=== PATIENT | female | born 1970 | race Caucasian/White ===

== ENCOUNTER → 2017-01-06 | Outpatient (CLI) | payer BC ==
[~2017-01-06] MED LIST: ALBU8.5H5; CYCL5TAB; HYDR-3240 PO; IBUP800T PO; NAPR500T3; OMEP20CA9 PO; PENI500T PO; flexeril
== END | disposition home or self-care (01) ==
LOC: CFH 08:33
PROVIDERS: ATTEND Nurse Practitioner
DX: Z12.31 Encounter for screening mammogram for malignant neoplasm of breast (principal)
CPT/HCPCS: G0202

== ENCOUNTER 2017-01-28 16:37 | Emergency (ER) | payer BC ==
[~2017-01-28] VITALS: Ht 160 cm; Wt 125.0 kg
[2017-01-28 16:42] VITALS: BP 161/89
[2017-01-28] MEDS ORDERED: KETOROLAC 30 MG/1 ML IM ONE (18:00)
== END 2017-01-28 18:20 | disposition home or self-care (01) ==
LOC: ED 18:14
DX: S76.011A Strain of muscle, fascia and tendon of right hip, initial encounter (principal); M54.16 Radiculopathy, lumbar region; M54.41 Lumbago with sciatica, right side; I10 Essential (primary) hypertension; E11.9 Type 2 diabetes mellitus without complications; Z90.49 Acquired absence of other specified parts of digestive tract; Z90.710 Acquired absence of both cervix and uterus; X58.XXXA Exposure to other specified factors, initial encounter; Y93.89 Activity, other specified; Y92.89 Other specified places as the place of occurrence of the external cause; Y99.9 Unspecified external cause status
CPT/HCPCS: 72110; 99284

== ENCOUNTER 2017-02-25 21:48 | Emergency (ER) | payer BC ==
[~2017-02-25] VITALS: Ht 160 cm; Wt 126.6 kg
[2017-02-25 21:54] VITALS: BP 157/93
== END 2017-02-26 00:59 | disposition home or self-care (01) ==
LOC: ED 22:50
DX: N30.01 Acute cystitis with hematuria (principal); Z90.49 Acquired absence of other specified parts of digestive tract; Z90.89 Acquired absence of other organs; I10 Essential (primary) hypertension; E11.9 Type 2 diabetes mellitus without complications
CPT/HCPCS: 81001; 87086; 99284

== ENCOUNTER 2018-07-22 08:40 | Emergency (ER) | payer BC ==
[~2018-07-22] VITALS: Ht 162.6 cm; Wt 88.9 kg
[~2018-07-22 08:40] MED LIST changes: +IBUP-1223 PO; -IBUP800T PO; +NAPR-685; -NAPR500T3
[2018-07-22 09:28] LABS: CULTURE INDICATED? YES; MICROSCOPIC INDICATED
[2018-07-22 10:46] VITALS: BP 137/68
== END 2018-07-22 10:48 | disposition home or self-care (01) ==
LOC: ED 10:30
DX: N30.00 Acute cystitis without hematuria (principal); F17.200 Nicotine dependence, unspecified, uncomplicated; Z88.2 Allergy status to sulfonamides; Z88.1 Allergy status to other antibiotic agents
CPT/HCPCS: 81001; 87086; 99284

== ENCOUNTER 2018-08-29 08:04 | Emergency (ER) | payer BC ==
[~2018-08-29] VITALS: Ht 154.9 cm; Wt 88.1 kg
[2018-08-29 08:36] LABS: BASOPHILS # (AUTO) 0.05 x10^3/uL (0-0.1); BASOPHILS % (AUTO) 1 % (0-1); EOSINOPHILS # (AUTO) 0.12 x10^3/uL (0-0.4); EOSINOPHILS % (AUTO) 2 % (1-7); LYMPHOCYTES # (AUTO) 2.23 x10^3/uL (1-3.4); LYMPHOCYTES % (AUTO) 31 % (22-44); MD NO; MEAN CORPUSCULAR HGB CONC 33.6 g/dL (32.4-35.8); MEAN CORPUSCULAR VOLUME 89.3 fL (80-100); MEAN PLATELET VOLUME 8.9 fL (7.4-10.4); MONOCYTES % (AUTO) 6 % (2-9); NEUTROPHILS # (AUTO) 4.35 x10^3/uL (1.8-6.8); NEUTROPHILS % (AUTO) 61 % (42-75); PLATELET COUNT 242 x10^3/uL (130-400); RED BLOOD COUNT 4.93 x10^6/uL (3.82-5.3); RED CELL DISTRIBUTION WIDTH 12.7 % (9.6-15.2)
[2018-08-29 08:37] LABS: MICROSCOPIC AUTO
[2018-08-29 08:48] LABS: ALANINE AMINOTRANSFERASE 19 U/L (12-78); ALBUMIN 3.7 g/dL (3.4-5.0); ANION GAP 5 mmol/L (5-15); CHLORIDE 107 mmol/L (98-107); CREATININE 0.69 mg/dL (0.55-1.02)
[2018-08-29 08:51] LABS: ALKALINE PHOSPHATASE 117 U/L (45-117); BILIRUBIN,TOTAL 0.3 mg/dL (0.2-1.0); TOTAL PROTEIN 7.7 g/dL (6.4-8.2)
[2018-08-29 08:57] LABS: CULTURE INDICATED? YES
[2018-08-29 11:21] VITALS: BP 135/72
[2018-08-29 12:48] LABS: MICROSCOPIC AUTO
[2018-08-29 12:57] LABS: CULTURE INDICATED? NO
== END 2018-08-29 13:21 | disposition home or self-care (01) ==
LOC: ED 09:33
DX: N13.2 Hydronephrosis with renal and ureteral calculous obstruction (principal); I10 Essential (primary) hypertension; E11.9 Type 2 diabetes mellitus without complications; Z90.49 Acquired absence of other specified parts of digestive tract; Z90.710 Acquired absence of both cervix and uterus; Z88.1 Allergy status to other antibiotic agents; Z88.2 Allergy status to sulfonamides
CPT/HCPCS: 36415; 74176; 76770; 80053; 81001; 85025; 87086; 99284

== ENCOUNTER 2019-02-13 07:26 | Emergency (ER) | payer BC ==
[~2019-02-13] VITALS: Ht 162.6 cm; Wt 86.3 kg
[~2019-02-13 07:26] MED LIST changes: +OMEP-110 PO
[2019-02-13 07:39] VITALS: BP 148/84
--- NOTE | 2019-02-13 07:58 | NUR ---
PATIENT IS NOT IN WAITING ROOM/LOBBY - US DELAY
[2019-02-13 08:01] LABS: MICROSCOPIC AUTO
[2019-02-13 08:10] LABS: CULTURE INDICATED? YES
--- NOTE | 2019-02-13 08:15 | NUR ---
PT AMBULATORY TO ROOM. CARE ASSUMED.
--- NOTE | 2019-02-13 09:00 | NUR ---
PT IN ULTRASOUND AT THIS TIME. CARE TRANSFERRED TO Reji SHEPARD.
--- NOTE | 2019-02-13 09:19 | NUR ---
ASSUMED CARE OF PT ON RETURN FROM RADIOLOGY. MD AT BEDSIDE EXAMINING PT
--- NOTE | 2019-02-13 09:23 | NUR ---
PT STATES BILATERAL FLANK PT INTERMITTENT FOR A WEEK. PT HAS BEEN TAKING FLOMAX FOR 4 OR 5 DAYS AND FEELING NO IMPROVEMENT
[2019-02-13 10:04] LABS: BASOPHILS # (AUTO) 0.03 x10^3/uL (0-0.1); BASOPHILS % (AUTO) 0 % (0-1); EOSINOPHILS # (AUTO) 0.11 x10^3/uL (0-0.4); EOSINOPHILS % (AUTO) 2 % (1-7); LYMPHOCYTES # (AUTO) 2.04 x10^3/uL (1-3.4); LYMPHOCYTES % (AUTO) 34 % (22-44); MD NO; MEAN CORPUSCULAR HEMOGLOBIN 30.5 pg (27.0-34.8); MEAN CORPUSCULAR HGB CONC 34.2 g/dL (32.4-35.8); MEAN CORPUSCULAR VOLUME 89.2 fL (80-100); MEAN PLATELET VOLUME 9.3 fL (7.4-10.4); MONOCYTES # (AUTO) 0.37 x10^3/uL (0.2-0.8); MONOCYTES % (AUTO) 6 % (2-9); NEUTROPHILS # (AUTO) 3.48 x10^3/uL (1.8-6.8); NEUTROPHILS % (AUTO) 58 % (42-75); PLATELET COUNT 208 x10^3/uL (130-400); RED BLOOD COUNT 4.71 x10^6/uL (3.82-5.3); RED CELL DISTRIBUTION WIDTH 13.4 % (9.6-15.2)
[2019-02-13 10:18] LABS: ALBUMIN 3.5 g/dL (3.4-5.0); ANION GAP 4 mmol/L (5-15); CALCIUM 9.2 mg/dL (8.5-10.1); CHLORIDE 109 mmol/L (98-107)
[2019-02-13 10:21] LABS: ALANINE AMINOTRANSFERASE 19 U/L (12-78); ALKALINE PHOSPHATASE 100 U/L (45-117); BILIRUBIN,TOTAL 0.3 mg/dL (0.2-1.0); TOTAL PROTEIN 6.9 g/dL (6.4-8.2)
== END 2019-02-13 10:05 | disposition home or self-care (01) ==
LOC: ED 09:54
DX: N30.01 Acute cystitis with hematuria (principal); I10 Essential (primary) hypertension; M19.90 Unspecified osteoarthritis, unspecified site; E11.9 Type 2 diabetes mellitus without complications; M54.9 Dorsalgia, unspecified; G89.29 Other chronic pain; Z90.49 Acquired absence of other specified parts of digestive tract; Z90.710 Acquired absence of both cervix and uterus
CPT/HCPCS: 36415; 74018; 76770; 80053; 81001; 85025; 87086; 99284

== ENCOUNTER 2019-03-15 08:13 | Emergency (ER) | payer BC ==
[~2019-03-15] VITALS: Ht 162.6 cm; Wt 86.2 kg
--- NOTE | 2019-03-15 08:32 | NUR ---
NUMERICAL CONTROL MACHINE OPERATOR: PT TO ROOM FROM [facility], AMBULATORY STEADY GAIT.
--- NOTE | 2019-03-15 09:25 | NUR ---
CONTACT WITH PT, 49 YR OLD FEMALE HERE WITH C/O "I HAVE BEEN HAVING PAINS FROM BOTH SIDES, KIDNEY PAINS AND PAINS INE BLADDER AREA. IT FEELS LIKE AN INFECTION NOT KIDNEY STONES THIS TIME" PT ABLE TO AMB TO BR AND PROVIDE URINE SPECIMAN. CLEAR DK YELLOW URINE.
--- NOTE | 2019-03-15 09:44 | NUR ---
TASK RN: EMILY COLLECTED AND SENT TO LAB.
[2019-03-15] MEDS ORDERED: TAMS-11 PO (09:45)
[2019-03-15 09:56] LABS: MICROSCOPIC AUTO
[2019-03-15 10:03] LABS: CULTURE INDICATED? YES
--- NOTE | 2019-03-15 10:54 | NUR ---
PT SITTING UP ON GURNEY. NO ACUTE DISTRESS NOTED. NO NEEDS EXPRESSED AT THIS TIME. AWAITING FURTHER DISPOSITION.
[2019-03-15 11:25] VITALS: BP 115/79
== END 2019-03-15 11:25 | disposition home or self-care (01) ==
LOC: ED 09:52
DX: R10.30 Lower abdominal pain, unspecified (principal); M19.90 Unspecified osteoarthritis, unspecified site; I10 Essential (primary) hypertension; E11.9 Type 2 diabetes mellitus without complications; M54.9 Dorsalgia, unspecified; G89.29 Other chronic pain
CPT/HCPCS: 81001; 87086; 99283

== ENCOUNTER 2019-09-29 07:42 | Emergency (ER) | payer SELFPAY ==
[~2019-09-29] VITALS: Ht 162.6 cm; Wt 87.0 kg
[~2019-09-29 07:42] MED LIST changes: +TAMS-11 PO
--- NOTE | 2019-09-29 08:25 | NUR ---
AVAYA ENGINEER: PT TO ROOM FROM LOBBY
--- NOTE | 2019-09-29 08:38 | NUR ---
PT WITH C/O LQ ABD PAIN BILAT, STATES HAS BEEN GOING ON FOR TWO DAYS. PT STATES IT FEELS LIKE A BLADDER INFECTION. PT ALSO STATES HAVING INTERMITTENT CP FOR 3 DAYS. PT DENIES TRAUMA, SOB, DENIES URINARY SYMPTOMS.
[2019-09-29] MEDS ORDERED: MAALOX/HYOSCYAMINE/LIDOCAINE 45 ML BTL ONE (09:21)
[2019-09-29] MEDS ORDERED: HYDROcodone/APAP 5/325 TABLET ONE (09:21)
--- NOTE | 2019-09-29 09:23 | NUR ---
ERMD IN TO EVAL PT, ORDERS RECIEVED. PT MEDICATED PER MAR
[2019-09-29] MEDS ORDERED: HYDROcodone/APAP 5/325 TABLET PO ONE (09:30)
[2019-09-29] MEDS ORDERED: MAALOX/HYOSCYAMINE/LIDOCAINE 45 ML BTL PO ONE (09:30)
[2019-09-29 09:38] LABS: MICROSCOPIC AUTO
[2019-09-29 09:46] LABS: CULTURE INDICATED? YES
[2019-09-29 10:01] LABS: BASOPHILS # (AUTO) 0.06 x10^3/uL (0-0.1); BASOPHILS % (AUTO) 1 % (0-1); EOSINOPHILS % (AUTO) 1 % (1-7); LYMPHOCYTES # (AUTO) 2.11 x10^3/uL (1-3.4); LYMPHOCYTES % (AUTO) 27 % (22-44); MD NO; MEAN CORPUSCULAR HEMOGLOBIN 30.3 pg (27.0-34.8); MEAN CORPUSCULAR HGB CONC 33.2 g/dL (32.4-35.8); MEAN CORPUSCULAR VOLUME 91.2 fL (80-100); MEAN PLATELET VOLUME 8.7 fL (7.4-10.4); MONOCYTES # (AUTO) 0.41 x10^3/uL (0.2-0.8); MONOCYTES % (AUTO) 5 % (2-9); NEUTROPHILS # (AUTO) 5.04 x10^3/uL (1.8-6.8); NEUTROPHILS % (AUTO) 65 % (42-75); PLATELET COUNT 225 x10^3/uL (130-400); RED BLOOD COUNT 4.94 x10^6/uL (3.82-5.3); RED CELL DISTRIBUTION WIDTH 13.2 % (9.6-15.2)
[2019-09-29 10:10] LABS: ALANINE AMINOTRANSFERASE 19 U/L (12-78); ALBUMIN 3.4 g/dL (3.4-5.0); ANION GAP 6 mmol/L (5-15); CALCIUM 8.7 mg/dL (8.5-10.1); CHLORIDE 109 mmol/L (98-107); CREATININE 0.65 mg/dL (0.55-1.02)
[2019-09-29 10:12] LABS: ALKALINE PHOSPHATASE 112 U/L (45-117); BILIRUBIN,TOTAL 0.4 mg/dL (0.2-1.0); TOTAL PROTEIN 7.1 g/dL (6.4-8.2)
[2019-09-29 10:20] VITALS: BP 112/76
--- NOTE | 2019-09-29 10:45 | NUR ---
PT RESTING ON GURNEY, PT STATES MUCH RELIEF FROM PAIN MED/GI COCKTAIL, PT PLACED FOR RECHECK, NAD NOTED
== END 2019-09-29 11:34 | disposition home or self-care (01) ==
LOC: ED 09:05
DX: K29.00 Acute gastritis without bleeding (principal); I10 Essential (primary) hypertension; E11.9 Type 2 diabetes mellitus without complications
CPT/HCPCS: 36415; 80053; 81001; 83690; 85025; 87086; 93005; 99284

== ENCOUNTER 2020-05-01 18:56 | Emergency (ER) | payer OTHER ==
[~2020-05-01] VITALS: Ht 162.6 cm; Wt 92.2 kg
--- NOTE | 2020-05-01 19:06 | NUR ---
CAR DUMPER OPERATOR: PT PROVIDED WITH URINE CUP AND INSTRUCTED ON HOW TO OBTAIN A URINE SAMPLE
[2020-05-01 19:31] LABS: MICROSCOPIC AUTO
[2020-05-01 19:40] LABS: BASOPHILS # (AUTO) 0.04 x10^3/uL (0-0.1); BASOPHILS % (AUTO) 1 % (0-1); EOSINOPHILS # (AUTO) 0.09 x10^3/uL (0-0.4); EOSINOPHILS % (AUTO) 1 % (1-7); LYMPHOCYTES # (AUTO) 2.41 x10^3/uL (1-3.4); LYMPHOCYTES % (AUTO) 30 % (22-44); MD NO; MEAN CORPUSCULAR HGB CONC 33.5 g/dL (32.4-35.8); MEAN PLATELET VOLUME 9.3 fL (7.4-10.4); MONOCYTES # (AUTO) 0.59 x10^3/uL (0.2-0.8); MONOCYTES % (AUTO) 7 % (2-9); NEUTROPHILS # (AUTO) 4.96 x10^3/uL (1.8-6.8); NEUTROPHILS % (AUTO) 61 % (42-75); PLATELET COUNT 245 x10^3/uL (130-400); RED BLOOD COUNT 4.91 x10^6/uL (3.82-5.3); RED CELL DISTRIBUTION WIDTH 12.9 % (9.6-15.2)
[2020-05-01 19:47] LABS: ALANINE AMINOTRANSFERASE 25 U/L (12-78); ALBUMIN 3.7 g/dL (3.4-5.0); ANION GAP 8 mmol/L (5-15); CALCIUM 9.1 mg/dL (8.5-10.1); CHLORIDE 108 mmol/L (98-107); CREATININE 0.75 mg/dL (0.55-1.02)
[2020-05-01 19:50] LABS: ALKALINE PHOSPHATASE 111 U/L (45-117); BILIRUBIN,TOTAL 0.4 mg/dL (0.2-1.0); TOTAL PROTEIN 7.7 g/dL (6.4-8.2)
--- NOTE | 2020-05-01 20:05 | NUR ---
HUNTING SALES LEADER: PT. TO ROOM FROM LOBBY AT THIS TIME.
--- NOTE | 2020-05-01 21:04 | NUR ---
LUNCH BREAK NOTE: PT TO RADIOLOGY FOR US/CT.
[2020-05-01 21:58] VITALS: BP 118/74
== END 2020-05-01 22:00 | disposition home or self-care (01) ==
LOC: ED 20:43
DX: N30.00 Acute cystitis without hematuria (principal); R10.9 Unspecified abdominal pain; I10 Essential (primary) hypertension; E11.9 Type 2 diabetes mellitus without complications; M19.90 Unspecified osteoarthritis, unspecified site; G89.29 Other chronic pain; Z90.89 Acquired absence of other organs; Z90.710 Acquired absence of both cervix and uterus; Z90.49 Acquired absence of other specified parts of digestive tract; Z90.722 Acquired absence of ovaries, bilateral
CPT/HCPCS: 36415; 74176; 80053; 81001; 85025; 87086; 99284

== ENCOUNTER 2020-05-28 18:36 | Emergency (ER) | payer OTHER ==
[~2020-05-28] VITALS: Ht 162.6 cm; Wt 93.7 kg
[2020-05-28 19:08] VITALS: BP 132/74
[2020-05-28] MEDS ORDERED: MORPHINE SULFATE 4 MG/ML, 1ML IVPush PRN (19:30)
[2020-05-28] MEDS ORDERED: SODIUM CHLORIDE FLUSH 10ML SYR IVF ONE (19:30)
[2020-05-28] MEDS ORDERED: ONDANSETRON 2MG/ML, 2ML IVPush ONE (19:30)
[2020-05-28 19:41] LABS: ALANINE AMINOTRANSFERASE 21 U/L (12-78); ALBUMIN 3.4 g/dL (3.4-5.0); ANION GAP 6 mmol/L (5-15); CALCIUM 9.4 mg/dL (8.5-10.1); CHLORIDE 110 mmol/L (98-107); CREATININE 0.74 mg/dL (0.55-1.02)
[2020-05-28 19:44] LABS: ALKALINE PHOSPHATASE 117 U/L (45-117); BILIRUBIN,TOTAL 0.4 mg/dL (0.2-1.0); TOTAL PROTEIN 7.3 g/dL (6.4-8.2)
[2020-05-28 19:46] LABS: BASOPHILS # (AUTO) 0.03 x10^3/uL (0-0.1); BASOPHILS % (AUTO) 0 % (0-1); EOSINOPHILS # (AUTO) 0.12 x10^3/uL (0-0.4); EOSINOPHILS % (AUTO) 1 % (1-7); LYMPHOCYTES # (AUTO) 1.99 x10^3/uL (1-3.4); LYMPHOCYTES % (AUTO) 20 % (22-44); MD NO; MEAN CORPUSCULAR HGB CONC 33.4 g/dL (32.4-35.8); MONOCYTES % (AUTO) 7 % (2-9); NEUTROPHILS # (AUTO) 7.14 x10^3/uL (1.8-6.8); NEUTROPHILS % (AUTO) 72 % (42-75); PLATELET COUNT 218 x10^3/uL (130-400); RED BLOOD COUNT 4.71 x10^6/uL (3.82-5.3); RED CELL DISTRIBUTION WIDTH 12.9 % (9.6-15.2)
--- NOTE | 2020-05-28 20:54 | NUR ---
pt to room from lobby
[2020-05-28 21:34] LABS: MICROSCOPIC INDICATED
== END 2020-05-28 21:48 | disposition home or self-care (01) ==
LOC: ED 21:25
DX: N39.0 Urinary tract infection, site not specified (principal); E11.9 Type 2 diabetes mellitus without complications; Z90.710 Acquired absence of both cervix and uterus; Z85.528 Personal history of other malignant neoplasm of kidney
CPT/HCPCS: 36415; 80053; 81001; 83690; 85025; 87086; 99283

== ENCOUNTER 2020-06-04 13:00 | Emergency (ER) | payer OTHER ==
[~2020-06-04] VITALS: Ht 162.6 cm; Wt 94.5 kg
[2020-06-04 13:53] LABS: MICROSCOPIC AUTO
[2020-06-04] MEDS ORDERED: SODIUM CHLORIDE FLUSH 10ML SYR IVF ONE (14:00)
[2020-06-04 14:09] LABS: BASOPHILS # (AUTO) 0.02 x10^3/uL (0-0.1); BASOPHILS % (AUTO) 0 % (0-1); EOSINOPHILS # (AUTO) 0.14 x10^3/uL (0-0.4); EOSINOPHILS % (AUTO) 2 % (1-7); LYMPHOCYTES # (AUTO) 1.83 x10^3/uL (1-3.4); LYMPHOCYTES % (AUTO) 27 % (22-44); MD NO; MEAN CORPUSCULAR HEMOGLOBIN 29.6 pg (27.0-34.8); MEAN CORPUSCULAR VOLUME 89.4 fL (80-100); MEAN PLATELET VOLUME 8.6 fL (7.4-10.4); MONOCYTES # (AUTO) 0.54 x10^3/uL (0.2-0.8); MONOCYTES % (AUTO) 8 % (2-9); NEUTROPHILS # (AUTO) 4.34 x10^3/uL (1.8-6.8); NEUTROPHILS % (AUTO) 63 % (42-75); PLATELET COUNT 234 x10^3/uL (130-400); RED BLOOD COUNT 4.69 x10^6/uL (3.82-5.3); RED CELL DISTRIBUTION WIDTH 12.9 % (9.6-15.2)
[2020-06-04 14:20] LABS: ALANINE AMINOTRANSFERASE 18 U/L (12-78); ALBUMIN 3.2 g/dL (3.4-5.0); ANION GAP 5 mmol/L (5-15); CALCIUM 8.4 mg/dL (8.5-10.1); CHLORIDE 109 mmol/L (98-107)
[2020-06-04 14:22] LABS: ALKALINE PHOSPHATASE 112 U/L (45-117); BILIRUBIN,TOTAL 0.3 mg/dL (0.2-1.0); TOTAL PROTEIN 6.9 g/dL (6.4-8.2)
--- NOTE | 2020-06-04 14:48 | NUR ---
PT TO CT AT THIS TIME.
[2020-06-04] MEDS ORDERED: OMNIPAQUE 350 MG/ML, 100ML BOTTLE ONE (14:59)
[2020-06-04] MEDS ORDERED: FOSFOMYCIN 3 GM PACKET PO ONE (16:00)
[2020-06-04 16:17] VITALS: BP 143/79
[2020-06-04] MEDS ORDERED: FOSFOMYCIN 3 GM PACKET ONE (16:37)
== END 2020-06-04 17:23 | disposition home or self-care (01) ==
LOC: ED 13:58
DX: N30.00 Acute cystitis without hematuria (principal); G89.29 Other chronic pain; R10.9 Unspecified abdominal pain; R30.0 Dysuria
CPT/HCPCS: 36415; 74177; 80053; 81001; 83690; 85025; 87086; 99285; Q9967

== ENCOUNTER 2020-09-20 11:52 | Emergency (ER) | payer SELFPAY ==
[~2020-09-20] VITALS: Ht 162.6 cm; Wt 54.8 kg
--- NOTE | 2020-09-20 12:04 | NUR ---
PT AMBULATED TO RESTROOM WITH STEADY GAIT TO PROVIDE URINE SAMPLE.
--- NOTE | 2020-09-20 12:18 | NUR ---
UA COLLECTED AND SENT TO LAB. PT C/O ONE SHARP STABBING PAIN TO [facility] TODAY ABOUT 1000. PT STATES PAIN 1/10 AT THIS TIME. PT CONNECTED TO MONITORING. CALL LIGHT IN REACH. DENIES NEEDS AT THIS TIME.
[2020-09-20 12:28] LABS: MICROSCOPIC INDICATED
[2020-09-20 12:30] LABS: HCG UR SG > 1.045 (1.003-1.030)
[2020-09-20 12:49] LABS: BASOPHILS % (AUTO) 1 % (0-1); EOSINOPHILS % (AUTO) 1 % (1-7); LYMPHOCYTES % (AUTO) 30 % (22-44); MEAN CORPUSCULAR HEMOGLOBIN 29.8 pg (27.0-34.8); MEAN CORPUSCULAR HGB CONC 33.6 g/dL (32.4-35.8); MEAN PLATELET VOLUME 8.4 fL (7.4-10.4); MONOCYTES % (AUTO) 6 % (2-9); NEUTROPHILS % (AUTO) 63 % (42-75); PLATELET COUNT 240 x10^3/uL (130-400); RED BLOOD COUNT 4.81 x10^6/uL (3.82-5.3); RED CELL DISTRIBUTION WIDTH 13.1 % (9.6-15.2)
[2020-09-20 12:53] LABS: MD NO
[2020-09-20 13:01] LABS: ALANINE AMINOTRANSFERASE 21 U/L (12-78); ALBUMIN 3.7 g/dL (3.4-5.0); ANION GAP 4 mmol/L (5-15); CHLORIDE 110 mmol/L (98-107); CREATININE 0.72 mg/dL (0.55-1.02)
[2020-09-20 13:03] LABS: ALKALINE PHOSPHATASE 113 U/L (45-117); BILIRUBIN,TOTAL 0.3 mg/dL (0.2-1.0); TOTAL PROTEIN 7.3 g/dL (6.4-8.2)
--- NOTE | 2020-09-20 13:18 | NUR ---
ALL RESULTS ARE BACK AT THIS TIME. CHART UP FOR RECHECK.
[2020-09-20 14:58] VITALS: BP 156/85
== END 2020-09-20 15:03 | disposition home or self-care (01) ==
LOC: ED 12:53
DX: N23 Unspecified renal colic (principal); R31.9 Hematuria, unspecified; I10 Essential (primary) hypertension; E11.9 Type 2 diabetes mellitus without complications; Z90.49 Acquired absence of other specified parts of digestive tract
CPT/HCPCS: 36415; 74176; 80053; 81001; 81025; 85025; 87086; 99284

== ENCOUNTER 2021-04-02 14:35 | Emergency (ER) | payer OTHER ==
[~2021-04-02] VITALS: Ht 162.6 cm; Wt 100.8 kg
[~2021-04-02 14:35] MED LIST changes: +HYDR-2214 PO; -HYDR-3240 PO
--- NOTE | 2021-04-02 16:01 | NUR ---
CERT PHARMACY TECH: PT TO ROOM FROM LOBBY
--- NOTE | 2021-04-02 16:24 | NUR ---
ASSUMED CARE OF PATIENT. PATIENT REPORTS LEFT LOWER ABD PAIN AND RIGHT FLANK PAIN. VS STABLE. UA SENT. CALL LIGHT IN PLACE. WILL CONTINUE TO MONITOR.
[2021-04-02 16:44] VITALS: BP 152/82
[2021-04-02 16:48] LABS: ALANINE AMINOTRANSFERASE 22 U/L (12-78); ALBUMIN 3.4 g/dL (3.4-5.0); ANION GAP 6 mmol/L (5-15); BASOPHILS % (AUTO) 1 % (0-1); CALCIUM 8.9 mg/dL (8.5-10.1); CHLORIDE 108 mmol/L (98-107); CREATININE 0.62 mg/dL (0.55-1.02); EOSINOPHILS % (AUTO) 2 % (1-7); LYMPHOCYTES % (AUTO) 22 % (22-44); MEAN CORPUSCULAR HEMOGLOBIN 29.8 pg (27.0-34.8); MEAN CORPUSCULAR HGB CONC 33.3 g/dL (32.4-35.8); MEAN PLATELET VOLUME 8.5 fL (7.4-10.4); MONOCYTES % (AUTO) 9 % (2-9); NEUTROPHILS % (AUTO) 67 % (42-75); PLATELET COUNT 220 x10^3/uL (130-400); RED BLOOD COUNT 4.72 x10^6/uL (3.82-5.3); RED CELL DISTRIBUTION WIDTH 13.2 % (9.6-15.2)
[2021-04-02 16:50] LABS: ALKALINE PHOSPHATASE 110 U/L (45-117); BILIRUBIN,TOTAL 0.2 mg/dL (0.2-1.0); TOTAL PROTEIN 7.3 g/dL (6.4-8.2)
[2021-04-02 17:04] LABS: MICROSCOPIC INDICATED
--- NOTE | 2021-04-02 17:45 | NUR ---
PT RESTING IN ROOM. VS STABLE. CALL LIGHT IN PLACE. WILL CONTINUE TO MONITOR
== END 2021-04-02 19:10 | disposition home or self-care (01) ==
LOC: ED 19:04
DX: R10.32 Left lower quadrant pain (principal)
CPT/HCPCS: 36415; 74176; 80053; 81001; 83690; 85025; 99284

== ENCOUNTER 2021-05-05 10:36 | Emergency (ER) | payer OTHER ==
[~2021-05-05] VITALS: Ht 162.6 cm; Wt 100.6 kg
--- NOTE | 2021-05-05 10:51 | NUR ---
letty RN: urine cup given
--- NOTE | 2021-05-05 12:27 | NUR ---
CONSERVATION WORKER: PT TO ROOM FROM [facility]
--- NOTE | 2021-05-05 12:45 | NUR ---
RN and MD assessment completed at this time. UA sample present and sent to lab.
[2021-05-05] MEDS ORDERED: LISI-170 PO (12:55)
[2021-05-05 13:03] LABS: BASOPHILS % (AUTO) 1 % (0-1); EOSINOPHILS % (AUTO) 2 % (1-7); LYMPHOCYTES % (AUTO) 26 % (22-44); MEAN CORPUSCULAR HGB CONC 34.3 g/dL (32.4-35.8); MEAN PLATELET VOLUME 8.4 fL (7.4-10.4); MONOCYTES % (AUTO) 7 % (2-9); NEUTROPHILS % (AUTO) 64 % (42-75); PLATELET COUNT 210 x10^3/uL (130-400); RED BLOOD COUNT 4.79 x10^6/uL (3.82-5.3); RED CELL DISTRIBUTION WIDTH 13.5 % (9.6-15.2)
[2021-05-05 13:14] LABS: MICROSCOPIC AUTO
[2021-05-05 13:14] LABS: CHLORIDE 107 mmol/L (98-107)
[2021-05-05 13:29] LABS: ALBUMIN 3.5 g/dL (3.4-5.0); ANION GAP 5 mmol/L (5-15); CALCIUM 8.8 mg/dL (8.5-10.1); CREATININE 0.62 mg/dL (0.55-1.02)
--- NOTE | 2021-05-05 13:40 | NUR ---
Pt to CT at this time.
--- NOTE | 2021-05-05 13:53 | NUR ---
Lab results reviewed. Pt back to room without acute changes while off unit.
[2021-05-05 15:09] VITALS: BP 131/78
== END 2021-05-05 15:11 | disposition home or self-care (01) ==
LOC: ED 13:35
DX: N23 Unspecified renal colic (principal); R31.9 Hematuria, unspecified; R10.9 Unspecified abdominal pain; R11.0 Nausea; R50.9 Fever, unspecified; E11.9 Type 2 diabetes mellitus without complications; I10 Essential (primary) hypertension; Z90.49 Acquired absence of other specified parts of digestive tract; Z90.89 Acquired absence of other organs; Z90.710 Acquired absence of both cervix and uterus; Z90.722 Acquired absence of ovaries, bilateral
CPT/HCPCS: 36415; 74176; 80048; 81001; 82040; 85025; 99284

== ENCOUNTER 2021-06-16 07:39 | Outpatient (CLI) | payer OTHER ==
[~2021-06-16 07:39] MED LIST changes: +LISI-170 PO
[2021-06-16 08:15] LABS: ALANINE AMINOTRANSFERASE 23 U/L (12-78); ALBUMIN 3.3 g/dL (3.4-5.0); ANION GAP 6 mmol/L (5-15); CALCIUM 8.6 mg/dL (8.5-10.1); CHLORIDE 107 mmol/L (98-107)
[2021-06-16 08:18] LABS: ALKALINE PHOSPHATASE 101 U/L (45-117); BILIRUBIN,TOTAL 0.4 mg/dL (0.2-1.0); CHOL/HDL RATIO 4.3; CHOLESTEROL, TOTAL 210 mg/dL (140-239); CREATININE 0.61 mg/dL (0.55-1.02); HDL CHOL % 23 % (28-40); HDL CHOLESTEROL (DIRECT) 49 mg/dL (40-60); LDL CHOLESTEROL,CALCULATED 124 mg/dL (54-169); LDL/HDL RATIO 2.5 (0.5-3.0); TOTAL PROTEIN 7.3 g/dL (6.4-8.2); TRIGLYCERIDES 186 mg/dL (50-200); VLDL CHOLESTEROL 37 mg/dL (0-25)
== END 2021-06-16 23:59 | disposition home or self-care (01) ==
LOC: LAB 07:39
PROVIDERS: ATTEND Internal Medicine
DX: E11.69 Type 2 diabetes mellitus with other specified complication (principal); E78.2 Mixed hyperlipidemia; I11.9 Hypertensive heart disease without heart failure; K75.81 Nonalcoholic steatohepatitis (NASH); R94.6 Abnormal results of thyroid function studies; Z20.5 Contact with and (suspected) exposure to viral hepatitis
CPT/HCPCS: 36415; 80053; 80061; 83036